=== PATIENT | female | born 1995 | race American Indian/Alaskan Native ===

== ENCOUNTER 2020-10-01 16:07 | Emergency (ER) | payer SELFPAY ==
--- NOTE | 2020-10-01 18:00 | XRay Report ---
CHEST 2 VIEWS INDICATION / CLINICAL INFORMATION: cough. COMPARISON: None available. FINDINGS: SUPPORT DEVICES: None. HEART / MEDIASTINUM: No significant abnormality. LUNGS / PLEURA: No significant pulmonary or pleural abnormality. No confluent infiltrates or pleural effusions. No pneumothorax. ADDITIONAL FINDINGS: No significant additional findings. IMPRESSION: 1. No acute findings. Signer Name: Gibran George MD Signed: 10/01/2020 5:56 PM Workstation Name: [id number]
--- NOTE | 2020-10-01 18:16 | Emergency Department Report ---
ED Female HPI - General Chief complaint: Chest Pain Stated complaint: CHEST PAINS VAG PAINS Time Seen by Provider: 10/01/20 16:51 Source: patient Mode of arrival: Ambulatory Limitations: No Limitations - History of Present Illness Initial comments: This is a 25-year-old female presents the ED complaining of pain with sex that she experienced when having sex with her partner x2 occasions. Patient states initially about a month ago she had sex with her partner. Patient states that the second time around about 2 days ago when she tried to have sex it was painful which she had to stop. Patient states pain is experienced during sex. Patient states she has noticed mild discharge but no odor and no discoloration. Patient does note that she is protected sex with her partner both times. She denies fever/chills/nausea vomiting/vaginal bleed/abdominal pain/ shortness of breath headache or vision chest pain or any other problems. MD Complaint: vaginal discharge, other (Pain with sex) - Related Data Previous Rx's Medication Instructions Recorded Last Taken Type metroNIDAZOLE [Flagyl TAB] 500 mg PO Q12HR #14 tab 10/01/20 Unknown Rx Allergies Allergy/AdvReac Type Severity Reaction Status Date / Time nuts Allergy Rash Uncoded 10/01/20 16:08 ED Review of Systems ROS: Stated complaint: CHEST PAINS VAG PAINS Other details as noted in HPI Comment: All other systems reviewed and negative ED Past Medical Hx - Past Medical History Previous Medical History?: No - Surgical History Past Surgical History?: Yes Additional Surgical History: ovarian cyst - Social History Smoking Status: Never Smoker Substance Use Type: None - Medications Home Medications: Home Medications Medication Instructions Recorded Confirmed Last Taken Type metroNIDAZOLE [Flagyl TAB] 500 mg PO Q12HR #14 tab 10/01/20 Unknown Rx ED Physical Exam - General Limitations: No Limitations General appearance: alert, in no apparent distress - Head Head exam: Present: atraumatic, normocephalic - Eye Eye exam: Present: normal appearance - ENT ENT exam: Present: mucous membranes moist - Neck Neck exam: Present: normal inspection - Respiratory Respiratory exam: Present: normal lung sounds bilaterally. Absent: respiratory distress - Cardiovascular Cardiovascular Exam: Present: regular rate, normal rhythm. Absent: systolic murmur, diastolic murmur, rubs, gallop - GI/Abdominal GI/Abdominal exam: Present: soft, normal bowel sounds. Absent: distended, tenderness, guarding, mass - External exam: Present: normal external exam. Absent: erythema, swelling, lesions Speculum exam: Present: erythema, vaginal discharge, cervical discharge, other (Vaginal wall tenderness, pain with speculum insertion). Absent: vaginal bleeding, foreign body Bi-manual exam: Present: cervical motion tendernes - Extremities Exam Extremities exam: Present: normal inspection - Back Exam Back exam: Present: normal inspection - Neurological Exam Neurological exam: Present: alert, oriented X3 - Psychiatric Psychiatric exam: Present: normal affect, normal mood - Skin Skin exam: Present: warm, dry, intact, normal color. Absent: rash ED Course Vital Signs 10/01/20 10/01/20 10/01/20 16:08 16:46 17:01 Temperature 98.9 F Pulse Rate 96 H 87 83 Respiratory 16 18 Rate Blood Pressure 127/87 111/70 O2 Sat by Pulse 98 100 100 Oximetry 10/01/20 10/01/20 10/01/20 17:15 17:31 17:45 Temperature Pulse Rate 81 93 H 92 H Respiratory 24 24 27 H Rate Blood Pressure 98/72 98/72 115/89 O2 Sat by Pulse 100 100 89 Oximetry 10/01/20 10/01/20 10/01/20 18:01 18:15 18:35 Temperature Pulse Rate 79 84 Respiratory 19 20 Rate Blood Pressure 115/89 138/82 138/82 O2 Sat by Pulse 100 93 43 L Oximetry 10/01/20 10/01/20 10/01/20 18:45 19:14 19:17 Temperature 98.1 F Pulse Rate 85 Respiratory 18 Rate Blood Pressure 138/82 138/82 141/86 O2 Sat by Pulse 92 88 99 Oximetry ED Medical Decision Making - Medical Decision Making 25-year-old female presents with STD exposure. ED course: Urinalysis and gonorrhea and Chlamydia cultures obtained. Urinalysis positive, wet prep positive for trichomoniasis. Patient received 250 mg of Rocephin, azithromycin 1 g, . Discussed with patient possible STD due to exposure. Discussed with patient findings and treatment Discussed prophylaxis treatment patient is to abstain from sex 7-10 days as treatment. Discussed patient partner knowledge and treatment. Discussed the follow-up with the health department for further STD testing. Patient's alert and oriented times 3. Vital signs are normal patient is in no acute distress Patient will be discharged home with instructions. Critical care attestation.: If time is entered above; I have spent that time in minutes in the direct care of this critically ill patient, excluding procedure time. ED Disposition Clinical Impression: Trichomonosis, Exposure to STD Disposition: DC- TO HOME OR SELFCARE Is pt being admited?: No Does the pt Need Aspirin: No Condition: Stable Instructions: Vaginitis, [id number], Trichomoniasis, Safe Sex Additional Instructions: Make sure to follow up with the primary care physician as discussed. Take all your medications as you've been prescribed. If you have any worsening symptoms or develop new symptoms please return to ED immediately. Prescriptions: metroNIDAZOLE [Flagyl TAB] 500 mg PO Q12HR #14 tab Referrals: [facility] [Outside] - 3-5 Days [facility] [Outside] - 3-5 Days [facility] [Outside] - 3-5 Days Forms: Work/School Release Form(ED) Time of Disposition: 19:08
[2020-10-01] MEDS ORDERED: LIDOCAINE-MPF (1%) 10 MG/1 ML VIAL 5 ML INFILTRATI ONE (19:04)
[2020-10-01] MEDS ORDERED: AZITHROMYCIN 250 MG TAB PO ONE (19:04)
[2020-10-01 19:19] VITALS: BP 141/86
[2020-10-01 20:03] LABS: Bacteria,Urine 1+ /HPF (Negative); Bilirubin,Urine NEG (Negative); Blood,Urine NEG (Negative); Color,Urine Yellow (Yellow); HCG Qualitative,Urine Negative (Negative); Mucus,Urine FEW /HPF; Protein,Urine <15 mg/dL mg/dL (Negative); Urobilinogen,Urine < 2.0 mg/dL (<2.0)
== END 2020-10-01 20:15 | disposition home or self-care (01) ==
LOC: ED 16:07
DX: A59.9 Trichomoniasis, unspecified (principal); Z79.899 Other long term (current) drug therapy; Z98.890 Other specified postprocedural states; Z91.018 Allergy to other foods; Z20.2 Contact with and (suspected) exposure to infections with a predominantly sexual mode of transmission
CPT/HCPCS: 71046; 81001; 81025; 87086; 87210; 87591; 96372; 99284; J0696

== ENCOUNTER 2021-01-03 17:07 | Emergency (ER) | payer SELFPAY ==
[2021-01-03 17:15] VITALS: BP 109/52
[2021-01-03] MEDS ORDERED: dexAMETHasone 20 MG/5 ML VIAL IM ONE (17:48)
[2021-01-03] MEDS ORDERED: FAMOTIDINE 20 MG TAB PO ONE (17:48)
--- NOTE | 2021-01-03 17:54 | Emergency Department Report ---
ED Allergic Reaction HPI - General Chief complaint: Skin Rash Stated complaint: RASH/ITCHING Time Seen by Provider: 01/03/21 17:38 Source: patient Mode of arrival: Ambulatory Limitations: No Limitations - History of Present Illness Initial Comments: Patient is a 25-year-old female presents emergency room with complaints of a rash that began 2 days ago. Patient states that she recently came into contact with a cat and is not typically around cats. She states that her only known allergy is nuts and she has not had any known contact with nuts that she is aware of. She denies any new soaps, lotions, detergents, medications, foods, anything else new that she is aware of. PMHx ovarian cyst. Patient denies medication allergies. - Related Data Previous Rx's Medication Instructions Recorded Last Taken Type metroNIDAZOLE [Flagyl TAB] 500 mg PO Q12HR #14 tab 10/01/20 Unknown Rx Cetirizine HCl [Zyrtec 10mg tab] 10 mg PO DAILY #10 tablet 01/03/21 Unknown Rx Famotidine [Pepcid] 40 mg PO QHS #10 tablet 01/03/21 Unknown Rx Hydrocortisone 0.5% 1 applicatio TP TID #1 tube 01/03/21 Unknown Rx [Hydrocortisone 0.5% CREAM] Prednisone [predniSONE 10 mg 10 mg PO .TAPER #1 tab.ds.pk 01/03/21 Unknown Rx (6-Day Pack, 21 Tabs)] diphenhydrAMINE [Benadryl CAP] 25 mg PO Q6HR PRN #30 capsule 01/03/21 Unknown Rx Allergies Allergy/AdvReac Type Severity Reaction Status Date / Time nuts Allergy Rash Uncoded 01/03/21 17:08 ED Review of Systems ROS: Stated complaint: RASH/ITCHING Other details as noted in HPI Comment: All other systems reviewed and negative ED Past Medical Hx - Past Medical History Previous Medical History?: No - Surgical History Past Surgical History?: Yes Additional Surgical History: ovarian cyst - Social History Smoking Status: Never Smoker Substance Use Type: None - Medications Home Medications: Home Medications Medication Instructions Recorded Confirmed Last Taken Type metroNIDAZOLE [Flagyl TAB] 500 mg PO Q12HR #14 tab 10/01/20 Unknown Rx Cetirizine HCl [Zyrtec 10mg tab] 10 mg PO DAILY #10 tablet 01/03/21 Unknown Rx Famotidine [Pepcid] 40 mg PO QHS #10 tablet 01/03/21 Unknown Rx Hydrocortisone 0.5% 1 applicatio TP TID #1 tube 01/03/21 Unknown Rx [Hydrocortisone 0.5% CREAM] Prednisone [predniSONE 10 mg 10 mg PO .TAPER #1 tab.ds.pk 01/03/21 Unknown Rx (6-Day Pack, 21 Tabs)] diphenhydrAMINE [Benadryl CAP] 25 mg PO Q6HR PRN #30 capsule 01/03/21 Unknown Rx ED Physical Exam - General Limitations: No Limitations General appearance: alert, in no apparent distress - Head Head exam: Present: atraumatic, normocephalic - Eye Eye exam: Present: normal appearance - ENT ENT exam: Present: mucous membranes moist, other (no angioedema) - Respiratory Respiratory exam: Absent: respiratory distress, accessory muscle use - Neurological Exam Neurological exam: Present: alert, oriented X3 - Psychiatric Psychiatric exam: Present: normal affect, normal mood - Skin Skin exam: Present: warm, dry, urticaria (diffusely ) ED Course Vital Signs 01/03/21 01/03/21 17:13 17:15 Temperature 98.4 F Pulse Rate 102 H Respiratory 20 Rate Blood Pressure 109/52 O2 Sat by Pulse 98 Oximetry ED Medical Decision Making - Medical Decision Making Patient is a 25-year-old female presents emergency room with complaints of a rash that began 2 days ago. Patient states that she recently came into contact with a cat and is not typically around cats. She states that her only known allergy is nuts and she has not had any known contact with nuts that she is aware of. She denies any new soaps, lotions, detergents, medications, foods, anything else new that she is aware of. PMHx ovarian cyst. Patient denies medication allergies. Vitals are stable. On exam: Diffuse urticaria. Patient given dexamethasone IM and Pepcid while in the emergency department as she drove so Benadryl was not given. Patient has no clinical signs of anaphylaxis or angioedema. Patient given prescription for medications. Discussed return precautions with patient. Discussed the importance of primary care follow-up. Advised patient please take medication as prescribed. Follow-up with a primary care doctor. Return to emergency room immediately for any new or worsening symptoms. Critical care attestation.: If time is entered above; I have spent that time in minutes in the direct care of this critically ill patient, excluding procedure time. ED Disposition Clinical Impression: Urticaria Disposition: DC-01 TO HOME OR SELFCARE Is pt being admited?: No Does the pt Need Aspirin: No Condition: Stable Instructions: Hives, [id number] Prescriptions: Famotidine [Pepcid] 40 mg PO QHS #10 tablet diphenhydrAMINE [Benadryl CAP] 25 mg PO Q6HR PRN #30 capsule PRN Reason: itching Hydrocortisone 0.5% [Hydrocortisone 0.5% CREAM] 1 applicatio TP TID #1 tube Prednisone [predniSONE 10 mg (6-Day Pack, 21 Tabs)] 10 mg PO .TAPER #1 tab.ds.pk Cetirizine HCl [Zyrtec 10mg tab] 10 mg PO DAILY #10 tablet Referrals: CLAUDIA BARILLAS MD [Staff Physician] - 2-3 Days [facility] [Provider Group] - 2-3 Days Forms: Work/School Release Form(ED) Time of Disposition: 17:52 Print Language: FINNISH
== END 2021-01-03 18:56 | disposition home or self-care (01) ==
LOC: ED 17:07
DX: L50.9 Urticaria, unspecified (principal); Z79.899 Other long term (current) drug therapy; Z91.018 Allergy to other foods; Z98.890 Other specified postprocedural states
CPT/HCPCS: 96372; 99282; J1100